=== PATIENT | male | born 1975 | race Caucasian/White ===

== ENCOUNTER 2018-03-23 17:19 | Emergency (ER) | payer SELFPAY ==
[~2018-03-23 17:19] MED LIST: ISOVUE-370 76%-LOCM 1 ML ONE
[2018-03-23] MEDS ORDERED: cefTRIAXone\\ROCEPHIN 1 GM VIAL ONE (18:57)
[2018-03-23 19:05] LABS: #Basophils 0.1 thou/uL (0.0-0.2); #Eosinphils 0.2 thou/uL (0.0-0.7); #Lymphocytes 2.9 thou/uL (1.20-3.40); #Monocytes 1.2 thou/uL (0.11-0.59); #Neutrophils 7.1 thou/uL (1.40-6.50); %Basophils 0.5 % (0.0-1.0); %Eosinophils 1.8 % (0.0-10.0); %Lymphocytes 25.4 % (21.0-51.0); %Monocytes 10.8 % (0.0-10.0); %Neutrophils 61.5 % (42.0-75.0); Hemoglobin 15.6 g/dL (14.0-18.0); Mean Corpuscular HGB CONC 33.8 g/dL (32.0-36.0); Mean Corpuscular Hemoglobin 28.9 pg (27.0-31.0); Mean Corpuscular Volume 85.4 fl (80.0-94.0); Mean Platelet Volume 8.7 fL (7.4-10.4); Platelet Count 234 thou/uL (130-400); RBC Distribution Width 13.2 % (11.5-14.5); Red Blood Cell (RBC) Count 5.39 mill/uL (4.70-6.10); White Blood Cell (WBC) Count 11.5 thou/uL (4.8-10.8)
[2018-03-23 19:46] LABS: Bilirubin Negative (Negative); Blood, Urine Negative (Negative); Clarity CLEAR (Clear); Glucose, Urine (Dipstick) Negative (Negative); Leukocyte Negative (Negative); Nitrite Negative (Negative); Protein, Urine (Dipstick) Negative (Neg-Trace); Specific Gravity, Urine 1.038 (1.002-1.036); Urobilinogen 0.2 mg/dL (0.2-1.0); pH, Urine 6.5 (5.0-9.0)
[2018-03-23 20:16] LABS: ALT (SGPT) 28 U/L (8-55); AST (SGOT) 22 U/L (5-34); Albumin 4.2 g/dL (3.5-5.0); Alkaline Phosphatase 69 U/L (40-150); Anion Gap 12 mmol/L (10-20); BUN (Urea Nitrogen) 11 mg/dL (8.9-20.6); Bilirubin, Total 0.5 mg/dL (0.2-1.2); Calc. Creatinine Clearance 0 mL/min (70-130); Calcium 8.8 mg/dL (7.8-10.44); Carbon Dioxide 23 mmol/L (22-29); Chloride 104 mmol/L (98-107); Estimated GFR-MDRD Greater than 90; Globulin 2.6 g/dL (2.4-3.5); Glucose 137 mg/dL (70-105); Magnesium 2.1 mg/dL (1.6-2.6); Potassium 3.7 mmol/L (3.5-5.1); Protein, Total 6.8 g/dL (6.0-8.3); Sodium 135 mmol/L (136-145)
[2018-03-23] MEDS ORDERED: Lidocaine 1% w/Epinephrine 1:100K 20 ML VIAL ONE (21:06)
[2018-03-23] MEDS ORDERED: metroNIDAZOLE 500 MG/100 ML BAG ONE (21:15)
--- NOTE | 2018-03-23 21:38 | CT ---
CONTRAST ENHANCED CT IMAGES OF FACE 03/23/18 HISTORY: Right sided facial swelling. History of abscess. Axial images are obtained with coronal and sagittal reconstructions. CT images demonstrate a 5.5 x 4.4 x 4.7 cm soft tissue lesion in the right parotid gland. this may re present a right parotid mass or abscess. Correlate with clinical exam and history. This likely represents an aggressive malignancy versus infectious etiology. Some mild right deep cervical and more posterior VA spinal accessory change lymphadenopathy seen. Min imal left sided level II and VA lymphadenopathy also seen. The right platysma is thickened and there is inflammatory changes seen both anterolateral and postero medial to the right platysma. IMPRESSION: Findings concerning for a right anterior parotid abscess although mass cannot be excluded. Correlate with clinical exam. POS: BARRIE
--- NOTE | 2018-03-26 12:13 | HP ---
DATE OF CONSULTATION: 03/23/2018 REASON FOR CONSULTATION: The patient seen for evaluation of parotid gland swelling. BRIEF HISTORY: This is a gentleman 42-year-old who he has described a skin cyst that has been presen t in the right angle of mandible area for approximately a year to a year and a half. He reports over the 2-3 day period it rapidly increased and became red, tender, now involving nearly the entire aspe ct of his posterior parotid gland. CT scan of his neck was performed with contrast which shows a gel atinous phlegmon filled mass inside the right parotid capsule at its posterior and lateral margin. O therwise, no fevers, just localized pain. PAST MEDICAL HISTORY: Hypertension. PAST SURGICAL HISTORY: None. ALLERGIES: No known drug allergies. MEDICATIONS: None. REVIEW OF SYSTEMS: All within normal limits. PHYSICAL EXAMINATION: GENERAL: The patient is resting comfortably in bed. FACIAL EXAM: There is a large 3 x 4 cm tender, mildly fluctuant mass involving the right posterior i nferior aspect of the parotid gland. Facial muscles are fully intact. There is some blanching eryth rachell in the skin overlying this area. There is a small cyst area as well. Oral cavity, pharynx, muco sa is intact. No peripharyngeal bulging. Neck; no lymphadenopathy, no masses. Nasal cavity slightl y congested. Ears; TMs intact. Middle ear is well aerated. PROCEDURE: After risks, benefits, and alternatives were discussed with him, incision and drainage of this abscess the patient agreed to proceed. The wound was cleaned with Betadine and alcohol prep, 3 -4 mL of 1% lidocaine 1:100,000 epinephrine was injected into the overlying skin in this area. Follo wing this, a 15 blade was used and the blade was inserted into this area of phlegmon through skin and subcutaneous tissue in a direction parallel in a branch of the facial nerve in this area. Following this, approximately 5 mL of gelatinous material, infected material was removed. It was also sent fo r culture. A Iodoform gauze pack was placed within this area. The patient tolerated the procedure w ell. ASSESSMENT: 1. Right parotid gland abscess. 2. Right acute parotitis. PLAN: They are going to discharge him on oral antibiotics, clindamycin 300 mg 3 times a day. He is going to follow up in my clinic on Monday and he will perform daily wound changes at home. His is a nurse and says she feels comfortable with doing these packing dressing changes once daily until then.
== END 2018-03-23 22:46 | disposition home or self-care (01) ==
LOC: ERS 17:19
DX: K11.3 Abscess of salivary gland (principal)
CPT/HCPCS: 36415; 42300; 70487; 80053; 81003; 83605; 83735; 85025; 87040; 87070; 87205; 96361; 96365; 96367; 96368; J0696; J2001; J3370